=== PATIENT | male | born 1995 | race Caucasian/White ===

== ENCOUNTER 2019-08-11 12:16 | Emergency (ER) | payer OTHER, SELFPAY ==
[2018-03-03 14:19] VITALS: BMI 26.8
[2019-08-11 12:17] VITALS: BP 110/81; PULSE 68; RESP 17; TEMP 36.1; O2SAT 100; BMI 24.3
--- NOTE | 2019-08-11 13:17 | ED.VIS.GEN ---
History of Present Illness Chief Complaint: Laceration Narrative: This patient is a 24-year-old male who presents with a hand laceration. He slipped and fell and grabbed onto a sharp metal edge. He sustained lacerations to his left hand involving the left third and fourth digits. Bleeding is controlled. He complains of some mild numbness like his fingers fell asleep. But is still able to tell that they are being touched. Pain controlled. No other injuries. His tetanus is up-to-date. Past Medical History - Allergies and Home Meds Allergies/Adverse Reactions: Allergies No Known Allergies Allergy (Verified 08/11/19 12:16) Primary Care Physician: Miguelina Amezcua MD [Primary Care Provider] - Past Medical History: None Smoking Status: Never smoker Review of Systems All systems negative except as indicated General: Denies: Fever Cardiovascular: Denies: Chest pain Respiratory: Denies: Dyspnea Gastrointestinal: Denies: Vomiting, Diarrhea Musculoskeletal: Reports: Extremity Pain. Denies: Myalgias Skin: Denies: Rash Neurological: Denies: Headache Physical Exam Vital Signs/Narrative: Vital Signs Temp Pulse Resp BP Pulse Ox 08/11/19 12:17 96.9 F L 68 17 110/81 H 100 Inital Vital Signs reviewed: Yes General: Well nourished Head: Normocephalic Eyes: EOMI ENT: Moist mucous membranes Neck: Supple Cardiovascular: Regular rate Respiratory: No distress Extremities: - - Patient has multiple wounds to the left hand. He has a total laceration length 5 cm flap-like laceration over the volar side of the left third finger. He has a small stellate 1.5 cm laceration at the fingertip of the left fourth finger. There is a small skin avulsion at the base of the third and fourth digits. Bleeding is controlled his sensation is intact light touch he has normal flexion and extension no apparent tendon injuries Skin: Normal color Neurological: Alert Psychological: Normal affect Diagnostic/Tx/Re-eval - Medical Decision Making Patient was anesthetized with digital blocks of the left third and fourth fingers using a total of roughly 6 cc of 2% lidocaine without epinephrine. Good anesthesia was achieved. Wounds were cleansed with sterile saline's. Lacerations were repaired with a total of 14 simple interrupted 5?0 nonabsorbable sutures. Good approximation was achieved no immediate complications. Patient's wounds were cleansed and dressed with antibiotic ointment. He was advised on local wound care. He understands to return for new or worsening symptoms. He was advised on signs of infection to monitor for. All questions answered bedside. Patient agreeable to this plan was discharged home. ED Disposition - Plan for ED Patient: Disposition: Home or Assisted Living Diagnosis: Hand laceration Instructions: ED Laceration Hand Referrals: Miguelina Amezcua MD [Primary Care Provider] -
[2019-08-11 13:24] VITALS: RESP 17; O2SAT 98
== END 2019-08-11 13:40 | disposition home or self-care (01) ==
LOC: ED 13:37
PROVIDERS: Emergency Provider Emergency Medicine; PCP Internal Medicine
DX: S61.412A Laceration without foreign body of left hand, initial encounter (principal); W26.8XXA Contact with other sharp object(s), not elsewhere classified, initial encounter; Y93.9 Activity, unspecified; Y92.9 Unspecified place or not applicable
CPT/HCPCS: 12001; 99283